=== PATIENT | female | born 1975 | race Caucasian/White ===

== ENCOUNTER → 2020-08-27 12:52 | Outpatient (CLI) | payer BC, SELFPAY ==
--- NOTE | ~2020-08-27 | CT_ITS ---
EXAMINATION: CT chest w con DATE: 08/27/2020 13:20 INDICATION: Solitary nodule of lung TECHNIQUE: Computed tomography (CT) of the chest was performed without intravenous contrast. Addition al 3D reconstructions utilizing coronal maximum intensity projection (MIP) were performed. Automated exposure control and iterative reconstruction technique were employed. The dose-length product was 15 0.83 mGy-cm. COMPARISON: None FINDINGS: Cluster of multiple pulmonary nodules in the medial basilar segment of the left lower lobe along side the T9 vertebral body. The 3 largest measure between 7 mm and 14 mm in maximal diameter demonstratin g central coarse calcification consistent with old granulomatous disease. The largest noncalcified no dule measures 5 mm. Remainder of the lungs are clear with no other suspicious pulmonary nodules, pneu monia, pulmonary edema or other pulmonary infiltrates. No pleural effusion or pneumothorax. Heart siz e is normal. No pericardial effusion. No pathologically enlarged thoracic lymphadenopathy. Partially visualized at least 3.5 cm cyst at the upper pole of the left kidney. Remainder of the visualized upp er abdomen is unremarkable. Mild upper lumbar spondylosis. L3 hemangioma. IMPRESSION: 1. Cluster of multiple pulmonary nodules in the medial basilar segment of the left lower lobe at the region of concern, given the geographically colocalization and the presence of central calcifications within the 3 largest nodules, these all likely represent sequela of old granulomatous disease. Reviewed, dictated and finalized at location A. [employer] OPERATIONS REPRESENTATIVE IMPRESSION: 1. Cluster of multiple pulmonary nodules in the medial basilar segment of the l eft lower lobe at the region of concern, given the geographically colocalizatio n and the presence of central calcifications within the 3 largest nodules, thes e all likely represent sequela of old granulomatous disease.
== END ==
PROVIDERS: PCP Physician Assistant; Visit Provider Physician Assistant
DX: R91.8 Other nonspecific abnormal finding of lung field (principal)
CPT/HCPCS: 71260; Q9967

== ENCOUNTER → 2020-11-29 14:05 | Outpatient (CLI) | payer BC, SELFPAY ==
--- NOTE | ~2020-11-29 | US_ITS ---
EXAMINATION: US transvaginal DATE: 11/29/2020 14:32 INDICATION: Abnormal uterine bleeding Comparison:No prior studies for comparison. TECHNIQUE: Multiple transabdominal and endovaginal sonographic images of the pelvis performed. FINDINGS: The uterus measures 9.5 x 4.3 x 5.8 cm. There is an IUD in the endometrium. The endometrial complex measures 5 mm. The right ovary measures 3.5 x 2.6 x 3.7 cm and the left ovary measures 3.7 x 2.8 x 2.9 cm. There are bilateral ovarian cysts measuring 2.7 cm on the left and 2.2 cm on the right.. Normal doppler signal in both ovaries. There is no free fluid in the pelvis. There are no abnormal masses seen on either side. IMPRESSION: 1. Simple bilateral ovarian cysts, largest in the left ovary measuring up to 2.7 cm. Reviewed, dictated and finalized at location A. IMPRESSION: 1. Simple bilateral ovarian cysts, largest in the left ovary measuring up to 2. 7 cm.
== END ==
PROVIDERS: Visit Provider Nurse Practitioner
DX: N93.8 Other specified abnormal uterine and vaginal bleeding (principal); N83.201 Unspecified ovarian cyst, right side; N83.202 Unspecified ovarian cyst, left side
CPT/HCPCS: 76830

== ENCOUNTER → 2022-02-12 13:16 | Outpatient (CLI) | payer BC, SELFPAY ==
--- NOTE | ~2022-02-12 | US_ITS ---
US soft tissue UE LT 02/12/2022 13:32 Indication: Palpable nodule of the left upper arm Procedure: High-resolution Limited ultrasound of the left upper extremity Comparison: No prior studies for comparison. Findings: In the area of palpable concern in the left upper arm posterior/lateral, there is an oval i soechoic mass with circumscribed margins, parallel orientation measuring 1.4 x 0.5 x 1.4 cm. No poste rior features. There is internal vascularity. Impression: 1: Isoechoic 1.4 cm subcutaneous mass with internal vascularity. Given the internal vascularity this is not compatible with a simple lipoma. Recommend short-term follow-up in 6 months to assess stabilit y or percutaneous biopsy. Reviewed, dictated and finalized at location A. Impression: 1: Isoechoic 1.4 cm subcutaneous mass with internal vascularity. Given the inte rnal vascularity this is not compatible with a simple lipoma. Recommend short-t erm follow-up in 6 months to assess stability or percutaneous biopsy.
== END ==
PROVIDERS: PCP Physician Assistant; Visit Provider Physician Assistant
DX: R22.32 Localized swelling, mass and lump, left upper limb (principal)
CPT/HCPCS: 76882

== ENCOUNTER 2022-04-23 14:06 | Outpatient (CLI) | payer BC, SELFPAY ==
--- NOTE | ~2022-04-23 | US_ITS ---
EXAMINATION: US carotid duplex BI DATE: 04/23/2022 15:20 INDICATION: Syncope with vertigo and disturbance of skin sensation. TECHNIQUE: Grayscale, color Doppler, and pulsed Doppler images of the cervical carotid arteries were obtained. The degree of vessel stenosis is placed in one of the following categories: normal, <50%, 5 0-69%, >=70% but less than near-occlusion, near-occlusion, or total occlusion. Note that percent sten osis relative to normal distal artery lumen diameter is indirectly measured from velocity measurement s as described by Michael, et al. Radiology 2003; 229:340-346. COMPARISON: None. FINDINGS: RIGHT: The right common carotid artery (CCA) peak systolic velocity (PSV) is 56 cm/s. The right internal car otid artery (ICA) PSV is 59 cm/s. The right ICA end-diastolic velocity (EDV) is 10 cm/s. The right IC A/CCA PSV ratio is 1.0. Grayscale and color Doppler images yield an estimate of <50% diameter reducti on from plaque in the ICA. The external carotid artery (ECA) PSV is 98 cm/s. There is antegrade flow in the right vertebral artery. LEFT: The left CCA PSV is 99 cm/s. The left ICA PSV is 38 cm/s. The left ICA EDV is 9 cm/s. The left ICA/CC A PSV ratio is 0.9. Grayscale and color Doppler images yield an estimate of <50% diameter reduction f rom plaque in the ICA. The ECA PSV is 73 cm/s. There is antegrade flow in the left vertebral artery. IMPRESSION: 1. <50% stenosis in the right internal carotid artery. 2. <50% stenosis in the left internal carotid artery. Reviewed, dictated and finalized at location A.
== END 2022-04-23 14:07 | disposition home or self-care (01) ==
PROVIDERS: PCP Physician Assistant; Visit Provider Physician Assistant
DX: I65.23 Occlusion and stenosis of bilateral carotid arteries (principal)
CPT/HCPCS: 93880

== ENCOUNTER 2022-05-06 08:45 | Outpatient (CLI) | payer BC, SELFPAY ==
--- NOTE | 2022-05-06 | ECHO_ITS ---
Patient Info Name: Yokasta Alex Age: 46 years : 1975 Gender: Female Ht: 62 in Wt: 132 lbs BSA: 1.63 m2 HR: 78 bpm BP: 124 / 80 mmHg Heart Rhythm: Sinus Rhythm Exam Date: 05/06/2022 9:25 AM Exam Location: [facility] Patient Status: Outpatient Admit Date: 05/06/2022 Staff Ordering Physician: ChristianneMayra PA-C Remote Sensing Surveyor: Nevin Champion RDCS Attending Provider: KylerMayra PA-C Exam Type: CA echo doppler color flow Study Info Indications R55 - Syncope and collapse Complete two-dimensional, color flow and Doppler transthoracic echocardiogram is performed. Summary 1. Complete two-dimensional, color flow and Doppler transthoracic echocardiogram is performed. 2. Left ventricular chamber dimension is normal. 3. Left ventricular systolic function is normal, estimated at 55-60%. 4. There is no increased left ventricular wall thickness. 5. The left ventricular diastolic function is grade I diastolic dysfunction. 6. There is mild tricuspid valve regurgitation. Left Ventricle Left ventricular chamber dimension is normal. Left ventricular systolic function is normal, estimated at 55-60%. There is no increased left ventricular wall thickness. The left ventricular diastolic function is grade I diastolic dysfunction. Right Ventricle Right ventricular chamber dimension is normal. Right ventricular systolic function is normal. Left Atria Left atrial chamber dimension is normal. Right Atria Right atrial chamber dimension is normal. Atrial Septum Intact interatrial septum visualized by color flow imaging. Aortic Valve The aortic valve is trileaflet. There is mild aortic valve sclerosis. There is no aortic valve stenosis. There is trace aortic valve regurgitation. Pulmonic Valve The pulmonic valve is normal. There is no pulmonic valve stenosis. There is trace pulmonic regurgitation. Mitral Valve The mitral valve has normal leaflets. There is no mitral valve stenosis. There is trace mitral valve regurgitation. Tricuspid Valve The tricuspid valve leaflets are normal. There is no significant tricuspid valve stenosis. There is mild tricuspid valve regurgitation. No pulmonary hypertension, estimated pulmonary arterial systolic pressure is 28 mmHg. Pericardium/Pleural The pericardium appears normal. There is no pericardial effusion. Inferior Vena Cava Dilated inferior vena cava with <50% collapse upon inspiration consistent with elevated right atrial pressure, 10 mmHg. Aorta The aortic root size at the sinus of Valsalva is normal. Left Ventricular Outflow Tract Name Value Normal LVOT 2D LVOT Diameter 2.0 cm LVOT Doppler LVOT Peak Gradient 4 mmHg LVOT Mean Gradient 2 mmHg LVOT VTI 19 cm LVOT VTI/AV VTI Ratio 0.9 LVOT Stroke Volume 61 ml LVOT CO 4.0 l/min LVOT CI 2.4 l/min/m2 Mitral Valve
== END 2022-05-06 08:46 | disposition home or self-care (01) ==
PROVIDERS: PCP Physician Assistant; Visit Provider Physician Assistant
DX: R55 Syncope and collapse (principal)
CPT/HCPCS: 93306

== ENCOUNTER 2022-05-27 11:51 | Outpatient (NON) | payer BC, SELFPAY | END 2022-05-27 11:52 | disposition home or self-care (01) | PROVIDERS: PCP Physician Assistant; Visit Provider Nurse Practitioner | DX: D49.2 Neoplasm of unspecified behavior of bone, soft tissue, and skin (principal) | CPT/HCPCS: 88304 ==

== ENCOUNTER 2025-03-10 07:50 | Outpatient (CLI) | payer BC, SELFPAY ==
--- NOTE | ~2025-03-10 | US_ITS ---
US thyroid INDICATION: Family history of thyroid cancer TECHNIQUE: Real-time sonographic images of the thyroid gland were obtained. COMPARISON: No prior studies for comparison. FINDINGS: The right thyroid lobe measures 4.7 x 1.7 x 1.8 cm. The left thyroid lobe measures 5.3 x 0 .8 x 1.6 cm. There are 3 masses in the left lobe, largest dominant mass measuring 9 x 6 x 5 mm which is solid, wider than tall, hypoechoic and smoothly marginated, TR 4. Normal vascular flow is present. IMPRESSION: 1. Multiple small subcentimeter left thyroid nodules which are likely benign and do not meet sonogra phic criteria for biopsy. Recommend follow-up thyroid ultrasound in 12 months. Reviewed, dictated and finalized at location A. IMPRESSION: 1. Multiple small subcentimeter left thyroid nodules which are likely benign a nd do not meet sonographic criteria for biopsy. Recommend follow-up thyroid ult rasound in 12 months.
== END 2025-03-10 07:51 | disposition home or self-care (01) ==
LOC: MICIMG 07:50
PROVIDERS: PCP Physician Assistant; Visit Provider Physician Assistant
DX: E04.1 Nontoxic single thyroid nodule (principal); Z80.8 Family history of malignant neoplasm of other organs or systems
CPT/HCPCS: 76536